=== PATIENT | female | born 2005 | race Caucasian/White ===

== ENCOUNTER 2024-07-06 14:45 | Emergency (ER) | payer OTHER, SELFPAY ==
[2024-07-06 14:47] VITALS: BP 109/63
[2024-07-06 15:12] LABS: % Basophils 0.2 % (0-2); % Immature Granulocytes 0.3 % (0-0.5); % Lymphocytes 6.9 % (20.5-51.1); % Monocytes 9.5 % (1.7-9.3); % Neutrophils 83.1 % (42.2-75.2); Absolute Lymphocytes 0.8 10^3/uL (1.2-3.4); Absolute Monocytes 1.1 10^3/uL (0.1-0.6); Absolute Neutrophils 9.3 10^3/uL (1.4-6.5); Hematocrit 29.7 % (37.0-47.0); Hemoglobin 9.3 g/dL (12.0-16.0); Mean Corp Hgb Conc. 31.3 g/dL (33.0-37.0); Mean Corpuscular Hgb 21.7 pg (27.0-31.0); Mean Corpuscular Volume 69.4 fL (81.0-99.0); Nucleated Red Blood Cells % 0 %; Platelet Count 271 10^3/uL (130-400); Red Blood Cell Count 4.28 10^6/uL (4.20-5.40); Red Cell Dist. Width 15.9 % (11.5-14.5); White Blood Cell Count 11.2 10^3/uL (4.8-10.8)
[2024-07-06 15:25] LABS: ALT (SGPT) 17 U/L (0-35); AST (SGOT) 20 U/L (14-36); Albumin 3.6 g/dl (3.5-5.0); Alkaline Phosphatase 61 U/L (38-126); Blood Urea Nitrogen 9 mg/dl (7-17); Calcium 8.9 mg/dl (8.4-10.2); Carbon Dioxide 24 mmol/L (22-30); Chloride 107 mmol/L (98-107); Glucose 99 mg/dl (70-99); Sodium 136 mmol/L (135-145); Total Bilirubin 0.6 mg/dl (0.2-1.3); Total Protein 6.5 g/dl (6.3-8.2); eGFR > 60.00
[2024-07-06 15:27] LABS: COVID-19 Antigen Negative (Negative); Monotest Negative (Negative)
--- NOTE | 2024-07-06 18:35 | EDRN ---
Pt has been having sore throat pain that started yesterday and passed out in am and around one due to extreme dizziness today. Pt also has constant bad headache. Throat pain 10/10. Head pain 8/10, posterior head.
[2024-07-06 18:37] VITALS: BP 112/73
[2024-07-06 18:44] VITALS: BMI 22.5
--- NOTE | 2024-07-06 18:45 | EDRN ---
Airam DUMONT in to see pt.
--- NOTE | 2024-07-06 19:07 | ED.GENMED ---
Addendum entered and electronically signed by Janice Cochran PA-C 07/09/24 07:50:
group G strep + throat culture
pt called, left brielle that i called in penicillin to her pharmacy
Original Note:
History of Present Illness
General
Chief Complaint: Fainting/Passed Out
Source: patient
Exam Limitations: none
Time Seen by Provider: 07/06/24 18:20
Nursing documentation reviewed up to this point in time: agreed with
History of Present Illness
History of Present Illness:
18-year-old female on Stelara for Crohn's, status post bowel resection, Anemia, right arm DVT not on anticoagulation any longer
Presents for fever, sore throat, chills, cough for the last 2 days. Patient is a college student, drove back from [place] earlier this week, doing well until yesterday. She says her throat is pretty painful when she swallows. She has been
taking Tylenol and the last dose was a couple of hours ago. She also has had a dry cough for the last month or 2 but did not get checked. She is not having any sputum production. From a Crohn's perspective she does not feel any flareups are
ongoing, she has no abdominal pain, no diarrhea, no mucousy stools.
Patient says that she had a near syncopal event after being on the toilet this morning, she had urinated and then felt like she was going to throw up and felt lightheaded. She stood up but lowered herself to the ground when she felt like she was
going to pass out so she did not fully lose consciousness. Then later this afternoon around 1 PM again the patient was in the bathroom when she felt like she was going to pass out after urinating, stood up got lightheaded and definitely passed out
onto the ground without any injuries. Mom is right there. Patient had no seizure activity
Mom is at the bedside and corroborates this
Thinks she thinks she has been dehydrated because she has not been drinking because of the sore throat.
No neck pain, headache, pleuritic chest pain, history of PE, arm or leg swelling
Past History
Past History
ED Past Medical History: Other (Crohn's, DVT, anemia)
ED Past Surgical History: Bowel resection
Review of Systems
Review of Systems
Allergies reviewed?: Yes
All Other Systems: Not applicable
Phy Exam
Physical Exam
Physical Exam:
GENERAL: Alert , in no apparent distress, very well-appearing
EYE: pupils equal and reactive
NECK: Supple
ENT: b/l TM s clear, pharynx erythematous but no tonsillar hypertrophy or exudates
Normal uvula midline, no exudate, normal phonation, tolerating secretions
CARDIAC: Tachycardia no edema
LUNGS: Clear breath sounds bilaterally, no acute respiratory distress, no wheezes/rales/rhonchi, occ cough
ABDOMEN: Soft, without focal tenderness, no r/g, no cvat, normal bowel sounds
NEUROLOGICAL: Alert and oriented, no focal neuro deficits
SKIN: Warm and dry, skin intact.
MUSCULOSKELETAL: No edema, well perfused.
PSYCH: Normal and appropriate interaction.
Course
Orders/Labs/Results
Orders:
Orders
07/06/24 14:50
Electrocardiogram (*1) Urgent
Reason for Study: Other
Other Reason for Exam: Possible Sepsis
EKG- Treatment ONCE
07/06/24 15:01
COVID-19 Antigen Urgent
Source: Nasal Swab
Complete Blood Count/With Diff Urgent
Comprehensive Metabolic Panel Urgent
Monotest Urgent
Influenza A+B Rapid Molecular Urgent
SURY Source: Nasal Swab
Specimen Description:
07/06/24 18:54
0.9% Sodium Chloride 1000 ml [Nss] 1,000 ml IV BOLUS
Acetaminophen [Tylenol] 1,000 mg PO NOW STA
Ketorolac [Toradol] 15 mg IV NOW STA
07/06/24 19:28
D-Dimer Urgent
Lactic Acid Urgent
Troponin I Urgent
Blood Culture Q30M
SURY Source: Blood/Venous
Specimen Description:
Rapid Strep Group A Urgent
SURY Source: Throat/Pharynx
Specimen Description:
Date Specimen was Collected: 07/06/24
Time Specimen was Collected: 19:02
07/06/24 19:33
Urinalysis Reflex To Culture Urgent
Date Specimen was Collected: 07/06/24
Time Specimen was Collected: 19:32
Urine Microscopic Reflex Cult Urgent
Blood Culture Q30M
SURY Source: Blood/Venous
Specimen Description:
Urine Culture Urgent
SURY Source: U
Specimen Description:
Date Specimen was Collected: 07/06/24
Time Specimen was Collected: 19:32
07/06/24 21:33
CR Chest - 2 Views Urgent
Comment:
Reason For Exam: cough
Abnormal Lab Results
07/06/24 07/06/24
15:01 19:33
WBC 11.2 H 10^3/uL
(4.8-10.8)
Hgb 9.3 L g/dL
(12.0-16.0)
Hct 29.7 L %
(37.0-47.0)
MCV 69.4 L fL
(81.0-99.0)
MCH 21.7 L pg
(27.0-31.0)
MCHC 31.3 L g/dL
(33.0-37.0)
RDW 15.9 H %
(11.5-14.5)
Absolute Neuts (auto) 9.3 H 10^3/uL
(1.4-6.5)
Absolute Lymphs (auto) 0.8 L 10^3/uL
(1.2-3.4)
Absolute Monos (auto) 1.1 H 10^3/uL
(0.1-0.6)
Neutrophils % 83.1 H %
(42.2-75.2)
Lymphocytes % 6.9 L %
(20.5-51.1)
Monocytes % 9.5 H %
(1.7-9.3)
Creatinine 0.5 L mg/dL
(0.6-1.0)
Urine Ketones 2+ A
(Negative)
Leukocyte Esterase Rfl 3+ A
(Negative)
Urine WBC (Reflex) 11-15 A /HPF
(0-5)
Urine Bacteria (Reflex) Few A
(Negative)
Urine Albumin (Reflex) 2+ A
(Neg - Trace)
07/06/24 15:01
07/06/24 15:01
Vital Signs
Initial and Last Documented VS:
Initial Vital Signs
Temp Pulse Resp BP Pulse Ox
37.1 C 111 18 109/63 100
07/06/24 14:47 07/06/24 14:47 07/06/24 14:47 07/06/24 14:47 07/06/24 14:47
Last Documented Vital Signs
Temp Pulse Resp BP Pulse Ox
37.4 C 94 16 110/63 98
07/06/24 20:31 07/06/24 20:31 07/06/24 20:31 07/06/24 20:31 07/06/24 20:31
MDM/Problems Addressed
Differential Diagnosis Includes:
pharyngitis, tonsillitis, mono, strep, flu, covid, syncope, vasovagal, dehdyration
MDM/Problems Addressed:
18 y/o F
crohns on stelara
here with URI sxs x 2 days, cough, sore throat, headache, fever
and then she did pass out, 1 time for sure with walking after getting up from the toilet and then antoher time she nearly passed out
pt feels dehydrated from not drinking due to sore throat
also has had a cough for a few weeks but hasn't gotten it checked out
h/o dvt previusly, never had PE, dvt was treated with anticoagulation
pt is well appearing but febrile, tachycardic
pharynx erytehamtous, no exudate, uvula midline
no tender MOSHE
moving neck well
lungs clear
abd soft nontender
ekg was abnormal with t wave inv v3, v4
d/w ed attendin [facility]
felt the syncope was more related to standing/vasovagal and dehydration
she was given tyleno/toradoll
and fluids and feels much better
d dimer was neg, trop neg, cxr indep reviewed, clear
flu/covid/mono/strep neg
lactic normal
blood cultures pending
d/c home
likely viral
*Critical Care Note
Total Time (30-74mins, 75-104mins- exclusive of procedures): Not Applicable
ED Attending Note
-
Portions of this chart may have been created with voice recognition software.� Occasional wrong word or��sound alike� substitutions may have occurred due to the inherent limitations of voice recognition software.
Discharge Plan
Departure
Patient Disposition: Home (Routine Discharge)
Date of Disposition: 07/06/24
Time of Disposition: 21:57
Patient with high blood pressure during this ER visit?: No
Condition: Fair
Covid-19: Negative COVID-19
Discharge Problem:
Acute upper respiratory infection
Instructions: Upper Respiratory Infection - Adult
Prescriptions:
No Action
cyproheptadine 4 MG tablet
2 mg PO DAILY
infliximab [Remicade] 100 MG/10 ML recon soln
100 mg IV .[id number]
Patient Comments:
2 weeks ago
dicyclomine 10 MG capsule
10 mg PO Q8HPRN PRN (Reason: abdominal pain) Qty: 15 0RF
Referrals:
NONE,* [Active] -
Activity Restrictions/Additional Instructions:
WE ARE NOT SURE THE CAUSE OF YOUR SYMPTOMS, IT IS PROBABLY VIRAL INFECTION
YOU TESTED NEGATIVE FOR FLU, COVID, MONO AND STREP
YOUR CHEST XRAY WAS CLEAR
YOU HAD NO SIGN OF A BLOOD CLOT
MAKE SURE TO STAY HYDRATED
TAKE TYLENOL FOR FEVER
WE WILL CALL YOU IF YOUR BLOOD CULTURES ARE POSITIVE, THEN YOU WOULD NEED TO RETURN TO BE ADMITTED
RETURN SOONER FOR: SEVERE PAIN, VOICE CHANGE, NECK SWELLING, TROUBLE BREATHING, REPEATED PASSING OUT, SEVERE ABDOMINAL PAIN RO ANY CONCERNS.
Interventions
Interventions:
*Risk Screen - Suicide Last Done: 07/06/24 14:51
*General Assessment Last Done: 07/06/24 18:37
*Neglect/Abuse Screening Last Done: 07/06/24 14:51
*ED- Fall Risk Assessment Last Done: 07/06/24 18:37
*ED COVID-19 Vaccine History Last Done: 07/06/24 18:37
*Nursing Disposition Last Done: 07/06/24 22:22
ED- Cardiac Assessment Last Done: 07/06/24 18:47
ED- Neurological Assessment Last Done: 07/06/24 18:47
Discharge Date and Time
Discharge Date/Time: 07/06/24 22:23
Print Language: CHINESE
[2024-07-06] MEDS: TYLENOL 1000 MG PO (19:28)
[2024-07-06] MEDS: TORADOL 15 MG IV (19:28)
[2024-07-06] MEDS: NSS 1000 IV (19:29)
[2024-07-06 19:43] LABS: Urine Albumin 2+ (Neg - Trace); Urine Bilirubin Negative (Negative); Urine Character Clear (Clear); Urine Color Yellow; Urine Glucose Negative (Negative); Urine Ketone 2+ (Negative); Urine Leukocyte 3+ (Negative); Urine Nitrite Negative (Negative); Urine Occult Blood Negative (Negative); Urine Specific Gravity 1.025 (<1.030); Urine Urobilinogen 1+ (Neg - 1+)
[2024-07-06 19:55] LABS: Lactic Acid 1.5 mmol/L (0.7-2.0)
[2024-07-06 19:57] LABS: Urine Mucus Many; Urine Squamous Cell >30 /LPF (Few)
[2024-07-06 19:58] LABS: Urine Bacteria Few (Negative); Urine Red Blood Cell 0-2 /HPF (0-2)
[2024-07-06 20:07] LABS: D-Dimer < 0.27 ug/mlFEU (0.00-0.50); Troponin I < 0.012 ng/ml
[2024-07-06 20:31] VITALS: BP 110/63
== END 2024-07-06 22:23 | disposition home or self-care (01) ==
LOC: EMR 14:45
PROVIDERS: Emergency Medicine; Physician Assistant; EMERGENCY PHYSICIAN Emergency Medicine; FAMILY PHYSICIAN Family Medicine
DX: J06.9 Acute upper respiratory infection, unspecified (principal); Z11.52 Encounter for screening for COVID-19
CPT/HCPCS: 99285; 96374; 96361; 71046; 80053; 81003; 81015; 83605; 84484; 85025; 85379; 86308; 87040; 87070; 87086; 87147; 87502; 87811; 87880; 93005

== ENCOUNTER 2025-02-11 22:05 | Emergency (ER) | payer OTHER, SELFPAY ==
[2025-02-11 22:31] VITALS: BP 114/74
[2025-02-11 23:02] LABS: Hematocrit 32.1 % (37.0-47.0); Hemoglobin 9.8 g/dL (12.0-16.0); Mean Corp Hgb Conc. 30.5 g/dL (33.0-37.0); Mean Corpuscular Volume 70.1 fL (81.0-99.0); Nucleated Red Blood Cells % 0 %; Platelet Count 257 10^3/uL (130-400); Red Cell Dist. Width 18.6 % (11.5-14.5)
[2025-02-11 23:25] LABS: HCG, Serum Qualitative Screen Negative
[2025-02-11 23:28] LABS: ALT (SGPT) 18 U/L (0-35); AST (SGOT) 24 U/L (14-36); Albumin 4.0 g/dl (3.5-5.0); Alkaline Phosphatase 45 U/L (38-126); Blood Urea Nitrogen 13 mg/dl (7-17); Calcium 9.3 mg/dl (8.4-10.2); Carbon Dioxide 26 mmol/L (22-30); Chloride 103 mmol/L (98-107); Glucose 78 mg/dl (70-99); Potassium 4.2 mmol/L (3.5-5.1); Sodium 133 mmol/L (135-145); Total Protein 7.2 g/dl (6.3-8.2); eGFR > 60.00
[2025-02-12 03:08] VITALS: BP 98/60
[2025-02-12 04:14] VITALS: BP 104/56
[2025-02-12 05:00] VITALS: BP 107/49
--- NOTE | 2025-02-12 05:42 | ED.GENMED ---
History of Present Illness
General
Chief Complaint: Fainting/Passed Out
Source: patient
Exam Limitations: none
Time Seen by Provider: 02/12/25 04:59
Nursing documentation reviewed up to this point in time: agreed with
History of Present Illness
History of Present Illness:
19-year-old female with a past medical history of Crohn's disease, chronic anemia who presents to the ER for evaluation after syncopal episode complaining of headache. Patient reports that she has history of syncopal events related to her chronic
anemia in the setting of Crohn's disease. She says that today she stood up off of the couch to go up stairs and passed out and fell backwards. She says that her father was near and says that she hit her head quite hard on the ground. She says
that since then she has had a significant headache which prompted her to come to the emergency room to be evaluated. She denies any preceding chest pain, palpitations and does not have the symptoms now. Aside from headache she reports some slight
difficulty focusing her eyes. Denies nausea or vomiting. Denies any neck pain. No back pain. No other injuries from the fall. She is not on blood thinners.
Past History
Past History
ED Past Medical History: Other (Crohn's, DVT, anemia)
ED Past Surgical History: Bowel resection
Review of Systems
Review of Systems
All Other Systems: ROS reviewed and negative except as documented in HPI and ROS
Cardiac: Reports syncope; Denies chest pain or palpitations
ABD/GI: Denies abdominal pain, nausea or vomiting
: Denies flank pain
Musculoskeletal: Denies joint pain, neck pain or back pain
Neurological: Reports headache; Denies weakness or numbness
Phy Exam
Physical Exam
Physical Exam:
General: Awake, alert, oriented x3; no acute distress
Head: Normocephalic, atraumatic
Eyes: Conjunctiva normal, EOMI, pupils equal round and reactive to light bilaterally
Throat: Airway intact, handling secretions, tongue atraumatic
Neck: Trachea midline, supple without meningismus, no tenderness in the cervical spine
Lungs: Clear to auscultation bilaterally, no wheezing, rales, rhonchi
Heart: Regular rate and rhythm, no murmurs, gallops, or rubs
Back: No signs of trauma to the back or flank and no tenderness in the thoracic or lumbar spine
Neuro: Cranial nerves intact, speech fluid, motor and sensory intact, ambulatory with steady gait
Skin: Warm and dry
Extremities: Atraumatic, warm well-perfused
Scores
Heart Failure Risk
Heart Failure Risk Score: Not Applicable
Heart Score for Chest Pain Patients
STEMI patient?: Not applicable
Withdrawal Assessment of Alcohol
Withdrawal Assessment Completed?: Not applicable
Course
Orders/Labs/Results
Orders:
Orders
02/11/25 22:35
Electrocardiogram (*1) Urgent
Reason for Study: Chest Pain
EKG- Treatment ONCE
Test Result ONCE
02/11/25 22:41
CT Head W/o Iv Contrast Urgent
Comment:
Reason For Exam: head trauma
02/11/25 22:55
Beta Hcg Serum Qualitative Screen [HCG, Serum Qualitative Screen] Urgent
Complete Blood Count/With Diff Urgent
Comprehensive Metabolic Panel Urgent
Abnormal Lab Results
02/11/25
22:55
Hgb 9.8 L g/dL
(12.0-16.0)
Hct 32.1 L %
(37.0-47.0)
MCV 70.1 L fL
(81.0-99.0)
MCH 21.4 L pg
(27.0-31.0)
MCHC 30.5 L g/dL
(33.0-37.0)
RDW 18.6 H %
(11.5-14.5)
Sodium 133 L mmol/L
(135-145)
Creatinine 0.4 L mg/dL
(0.6-1.0)
02/11/25 22:55
02/11/25 22:55
Vital Signs
Initial and Last Documented VS:
Initial Vital Signs
Temp Pulse Resp BP Pulse Ox
36.9 C 78 18 114/74 98
02/11/25 22:31 02/11/25 22:31 02/11/25 22:31 02/11/25 22:31 02/11/25 22:31
Last Documented Vital Signs
Temp Pulse Resp BP Pulse Ox
36.8 C 83 20 107/49 99
02/12/25 03:08 02/12/25 05:00 02/12/25 05:00 02/12/25 05:00 02/12/25 05:00
MDM/Problems Addressed
Differential Diagnosis Includes:
Headache: Concussion, brain bleed, brain mass, migraine, tension headache
Syncope: Orthostasis, vasovagal, arrhythmia less likely
MDM/Problems Addressed:
19-year-old female presents after syncopal event with head strike�she is complaining of headache. She says she has a history of syncope in the setting of chronic anemia, today had a syncopal event with position change but hit her head quite hard
today. Complaining of persistent headache since. Vitals and exam are as above. EKG here shows sinus rhythm no change from prior. She had lab work she which shows stable anemia, chemistry no clinically significant abnormalities. Her hCG is
negative. She was sent for a CT head which was negative for any acute abnormality; with negative CT within 6 hours of onset this is sufficiently sensitive to rule out subarachnoid hemorrhage and in fact clinical suspicion quite low�syncope is not
unusual for the patient, headache seems most consistent with a mild concussion. At this point she is stable for discharge with supportive care. She feels comfortable with this plan. Follow-up with primary doctor. All questions answered.
*Radiology
Radiology exam reviewed: radiology read reviewed
*Pulse Oximetry
SaO2: 99
Oxygen Mode of Delivery: Room air
Patient hypoxic: no (99%)
*EKG
Interpreted by ED Provider?: Yes
Heart Rate: 69
Rate: normal
Rhythm: sinus
Cap[place]: normal axis
Interval: normal interval
QRS Pattern: normal QRS
Ischemia: no ischemia
*Critical Care Note
Total Time (30-74mins, 75-104mins- exclusive of procedures): Not Applicable
Data Reviewed
Source: patient and records
ED Attending Note
-
Portions of this chart may have been created with voice recognition software.� Occasional wrong word or��sound alike� substitutions may have occurred due to the inherent limitations of voice recognition software.
Discharge Plan
Departure
Patient Disposition: Home (Routine Discharge)
Date of Disposition: 02/12/25
Time of Disposition: 05:48
Patient with high blood pressure during this ER visit?: No
Discharge Problem:
Syncope, Concussion
Instructions: Syncope (Fainting) (DC), Concussion in adults - ED (DC)
Prescriptions:
No Action
cyproheptadine 4 MG tablet
2 mg PO DAILY
infliximab [Remicade] 100 MG/10 ML recon soln
100 mg IV .[id number]
Patient Comments:
2 weeks ago
dicyclomine 10 MG capsule
10 mg PO Q8HPRN PRN (Reason: abdominal pain) Qty: 15 0RF
penicillin V potassium 500 mg tablet
500 mg PO QID Qty: 28 0RF
Activity Restrictions/Additional Instructions:
Thank you for visiting the Emergency Department at [facility].
1. Please schedule a follow up appointment as directed. Call first thing tomorrow morning to make an appointment.
2. If indicated, please take your medications as instructed and indicated on discharge paperwork.
3. If any of your symptoms do not improve, or persist, or become more severe within 6-12 hours, please return to the emergency department for further care.
4. Please return to the emergency department if you develop a headache, neck pain/stiffness, fever greater than 100.4F, chest pain, shortness of breath, persistent nausea, vomiting, slurred speech, difficulty walking, numbness/tingling, weakness,
signs of infection or any other symptoms that are worrisome to you.
Please call [phone] if you have any questions.
Interventions
Interventions:
*General Assessment Last Done: 02/11/25 22:31
*Neglect/Abuse Screening Last Done: 02/11/25 22:31
*ED COVID-19 Vaccine History Last Done: 02/12/25 04:59
*ED Influenza Vaccine History Last Done: 02/12/25 04:59
[facility] Fall Risk Assessment Tool Last Done: 02/12/25 05:00
*Risk Screen - Suicide (C-SSRS) Last Done: 02/11/25 22:31
Discharge Date and Time
Print Language: [id number]
== END 2025-02-12 06:33 | disposition home or self-care (01) ==
LOC: EMR 22:05
PROVIDERS: Emergency Medicine; EMERGENCY PHYSICIAN Emergency Medicine; FAMILY PHYSICIAN Family Medicine
DX: R55 Syncope and collapse (principal); S06.0XAA Concussion with loss of consciousness status unknown, initial encounter; W19.XXXA Unspecified fall, initial encounter; D64.9 Anemia, unspecified; Z86.718 Personal history of other venous thrombosis and embolism
CPT/HCPCS: 99284; 70450; 80053; 84703; 85025; 93005